=== PATIENT | male | born 1960 | race Caucasian/White ===

== ENCOUNTER → 2020-09-23 | Outpatient (CLI) | payer SELFPAY | LOC: M LABSMTC 12:03 | PROVIDERS: ATTEND Pediatrics | DX: Z20.822 Contact with and (suspected) exposure to COVID-19 (principal) ==

== ENCOUNTER 2021-11-16 14:07 | Emergency (ER) | payer BC, OTHER ==
[~2021-11-16] VITALS: Ht 180.3 cm; Wt 113.6 kg
[2021-11-16] MEDS ORDERED: KETOROLAC 60MG 2ML VIAL IM ONE (16:30)
[2021-11-16] MEDS ORDERED: LIDOCAINE 5% (LIDODERM) PATCH TD ONE (16:30)
[2021-11-16] MEDS ORDERED: diazePAM 10 MG TAB PO ONE (16:30)
[2021-11-16] MEDS ORDERED: ASPE4PAD TOP (17:56)
[2021-11-16] MEDS ORDERED: NAPR-837 PO (17:56)
[2021-11-16] MEDS ORDERED: METH-1165 PO (17:56)
[2021-11-16 18:07] VITALS: BP 130/76
[2021-11-16] MEDS ORDERED: **NOTE PATIENT COMMENT** MISC XX SCH (21:00)
== END 2021-11-16 18:22 | disposition home or self-care (01) ==
LOC: M ED 14:07
DX: M54.50 Low back pain, unspecified (principal); M54.6 Pain in thoracic spine; M51.36 Other intervertebral disc degeneration, lumbar region
CPT/HCPCS: 72072; 72110; 96372; 99283; J1885

== ENCOUNTER → 2022-05-06 | Outpatient (REF) | payer OTHER ==
[~2022-05-06] MED LIST: ASPE4PAD TOP; METH-1165 PO; NAPR-837 PO
[2022-05-06 17:17] LABS: ALBUMIN 3.6 GM/DL (3.2-5.2); ALT/SGPT 56 U/L (12-78); BILIRUBIN,TOTAL 0.5 MG/DL (0.2-1.0); BLOOD UREA NITROGEN 12 MG/DL (7-18); C REACTIVE PROTEIN QUANTITATIV 0.62 MG/DL (0.00-0.30); CALCIUM LEVEL 9.4 MG/DL (8.5-10.1); CARBON DIOXIDE LEVEL 29 MEQ/L (21-32); CHLORIDE LEVEL 105 MEQ/L (98-107); CREATININE FOR GFR 0.99 MG/DL (0.70-1.30); GLOMERULAR FILTRATION RATE > 60.0 (>56); GLUCOSE, FASTING 101 MG/DL (70-100); POTASSIUM SERUM 4.5 MEQ/L (3.5-5.1); SODIUM LEVEL 136 MEQ/L (136-145); TOTAL PROTEIN 7.3 GM/DL (6.4-8.2)
[2022-05-06 17:30] LABS: BASO # 0.1 10^3/uL (0.0-0.2); BASO % 0.8 % (0.0-1.0); EOS # 0.2 10^3/uL (0.0-0.5); EOS % 2.9 % (0.0-3.0); HEMATOCRIT 44.9 % (42.0-52.0); HEMOGLOBIN 14.9 g/dl (13.5-17.5); LYMPH # 1.4 10^3/uL (1.5-5.0); LYMPH % 17.9 % (24.0-44.0); MEAN CORPUSCULAR HEMOGLOBIN 31.9 pg (27.0-33.0); MEAN CORPUSCULAR HGB CONC 33.2 g/dl (32.0-36.5); MEAN CORPUSCULAR VOLUME 96.1 fl (80.0-96.0); MONO # 0.7 10^3/uL (0.0-0.8); MONO % 9.8 % (2.0-8.0); NEUTROPHILS # 5.2 10^3/uL (1.5-8.5); NEUTROPHILS % 68.1 % (36.0-66.0); PLATELET COUNT, AUTOMATED 313 10^3/uL (150-450); RED BLOOD COUNT 4.67 10^6/uL (4.30-6.10); WHITE BLOOD COUNT 7.6 10^3/uL (4.0-10.0)
[2022-05-06 19:36] LABS: ERYTHROCYTE SEDIMENTATION RATE 10 mm/hr (0-20)
== END ==
LOC: M SFHCRHEU 13:57
PROVIDERS: ATTEND Internal Medicine Rheumatology
DX: R76.8 Other specified abnormal immunological findings in serum (principal); M48.10 Ankylosing hyperostosis [Forestier], site unspecified; M54.50 Low back pain, unspecified

== ENCOUNTER → 2022-05-06 | Outpatient (CLI) | payer OTHER | LOC: M WUC 14:31 | PROVIDERS: ATTEND Internal Medicine Rheumatology | DX: R76.8 Other specified abnormal immunological findings in serum (principal); M48.10 Ankylosing hyperostosis [Forestier], site unspecified; M54.50 Low back pain, unspecified ==

== ENCOUNTER → 2022-11-17 | Outpatient (CLI) | payer MEDICAID, OTHER, SELFPAY | LOC: M SOG 14:07 | PROVIDERS: ATTEND Orthopaedic Surgery | DX: M54.50 Low back pain, unspecified (principal); M47.816 Spondylosis without myelopathy or radiculopathy, lumbar region ==

== ENCOUNTER → 2022-12-03 | Outpatient (CLI) | payer MEDICAID, SELFPAY | LOC: M PLARAD 10:37 | PROVIDERS: ATTEND Orthopaedic Surgery | DX: M51.26 Other intervertebral disc displacement, lumbar region (principal); M47.816 Spondylosis without myelopathy or radiculopathy, lumbar region; M43.16 Spondylolisthesis, lumbar region ==

== ENCOUNTER 2023-01-10 12:57 | Outpatient (RCR) | payer MEDICAID | END 2023-01-16 | LOC: M PT 12:57 | PROVIDERS: ATTEND Orthopaedic Surgery | DX: M54.50 Low back pain, unspecified (principal); M47.816 Spondylosis without myelopathy or radiculopathy, lumbar region ==

== ENCOUNTER → 2023-01-18 | Outpatient (CLI) | payer MEDICAID, OTHER ==
[2023-01-18 14:33] LABS: HEMOGLOBIN A1c 5.6 % (4.0-6.0)
[2023-01-18 14:46] LABS: ALKALINE PHOSPHATASE 80 U/L (46-116); ALT/SGPT 100 U/L (7.0-40); AST/SGOT 147 U/L (<34); BILIRUBIN,TOTAL 0.7 MG/DL (0.3-1.2); BLOOD UREA NITROGEN 11 MG/DL (9-23); CALCIUM LEVEL 9.1 MG/DL (8.3-10.6); CARBON DIOXIDE LEVEL 28 MMOL/L (20-31); CHLORIDE LEVEL 101 MMOL/L (98-107); CHOLESTEROL LEVEL 218 MG/DL (<200); CREATININE FOR GFR 0.95 MG/DL (0.70-1.30); GLOMERULAR FILTRATION RATE > 60.0 (>49); GLUCOSE, FASTING 95 MG/DL (74-106); HDL CHOLESTEROL 60.5 MG/DL (>40); LDL CHOLESTEROL 131.9 MG/DL (<100); NON-HDL-C 157.5 MG/DL; POTASSIUM SERUM 4.4 MMOL/L (3.5-5.1); SODIUM LEVEL 138 MMOL/L (136-145); TOTAL PROTEIN 7.4 G/DL (5.7-8.2); TRIGLYCERIDES LEVEL 128 MG/DL (<150)
[2023-01-18 14:48] LABS: THYROID STIMULATING HORMONE 5.082 uIU/ML (0.55-4.78)
== END ==
LOC: M PLALAB 09:53
PROVIDERS: ATTEND Family Medicine
DX: I10 Essential (primary) hypertension (principal); E66.9 Obesity, unspecified; Z78.9 Other specified health status; Z12.5 Encounter for screening for malignant neoplasm of prostate
CPT/HCPCS: 36415; 80053; 80061; 83036; 84443; G0103

== ENCOUNTER → 2023-03-25 | Outpatient (CLI) | payer OTHER ==
[2023-03-25 17:55] LABS: HEMATOCRIT 39.6 % (42.0-52.0); HEMOGLOBIN 12.8 g/dl (13.5-17.5); MEAN CORPUSCULAR HEMOGLOBIN 31.8 pg (27.0-33.0); MEAN CORPUSCULAR HGB CONC 32.3 g/dl (32.0-36.5); MEAN CORPUSCULAR VOLUME 98.5 fl (80.0-96.0); PLATELET COUNT, AUTOMATED 253 10^3/uL (150-450); RED BLOOD COUNT 4.02 10^6/uL (4.30-6.10); WHITE BLOOD COUNT 7.5 10^3/uL (4.0-10.0)
[2023-03-25 18:06] LABS: ALBUMIN 3.4 G/DL (3.2-5.2); ALKALINE PHOSPHATASE 58 U/L (46-116); ALT/SGPT 43 U/L (7.0-40); AST/SGOT 26 U/L (<34); BILIRUBIN,TOTAL 0.9 MG/DL (0.3-1.2); BLOOD UREA NITROGEN 14 MG/DL (9-23); CALCIUM LEVEL 9.9 MG/DL (8.3-10.6); CARBON DIOXIDE LEVEL 29 MMOL/L (20-31); CHLORIDE LEVEL 101 MMOL/L (98-107); CREATININE FOR GFR 0.94 MG/DL (0.70-1.30); GLOMERULAR FILTRATION RATE > 60.0 (>49); GLUCOSE, FASTING 99 MG/DL (74-106); POTASSIUM SERUM 4.9 MMOL/L (3.5-5.1); SODIUM LEVEL 135 MMOL/L (136-145); TOTAL PROTEIN 6.8 G/DL (5.7-8.2)
[2023-03-25 18:08] LABS: FREE T4 0.99 NG/DL (0.89-1.76); THYROID STIMULATING HORMONE 1.472 uIU/ML (0.55-4.78)
== END ==
LOC: M PLALAB 13:47
PROVIDERS: ATTEND Family Medicine
DX: R79.89 Other specified abnormal findings of blood chemistry (principal); K70.0 Alcoholic fatty liver

== ENCOUNTER → 2023-12-07 | Outpatient (REF) | LOC: M PLAIMG 11:04 | PROVIDERS: ATTEND Internal Medicine | DX: M54.50 Low back pain, unspecified (principal); M47.816 Spondylosis without myelopathy or radiculopathy, lumbar region ==

== ENCOUNTER 2024-09-17 10:29 | Inpatient (IN) | payer OTHER ==
[2024-09-17] VITALS (9 sets, daily range): BP systolic 135–182; BP diastolic 87–116; TEMP 96.6–99; O2SAT 94–96
[~2024-09-17] VITALS: Ht 180.3 cm; Wt 104.6 kg
[2024-09-17 11:05] LABS: ABG BASE EXCESS -0.9 (-2.0-2.0); ABG HCO3 22.5 MMOL/L (22.0-26.0); ABG O2 SATURATION 97.3 % (95.0-99.0); ABG PARTIAL PRESSURE CO2 33.8 mmHg (35.0-45.0); ABG PARTIAL PRESSURE O2 95.9 mmHg (75.0-100.0); ABG STANDARD HCO3 23.7 MMOL/L. (22.0-26.0); ABG TOTAL CO2 23.6 MMOL/L (23.0-31.0); ABG pH (ARTERIAL) 7.442 UNITS (7.350-7.450)
[2024-09-17 11:07] LABS: BASO # 0.1 10^3/uL (0.0-0.2); BASO % 0.6 % (0.0-1.0); EOS # 0.2 10^3/uL (0.0-0.5); EOS % 1.8 % (0.0-3.0); HEMATOCRIT 40.6 % (42.0-52.0); HEMOGLOBIN 13.3 g/dl (13.5-17.5); LYMPH # 1.3 10^3/uL (1.5-5.0); LYMPH % 15.1 % (24.0-44.0); MEAN CORPUSCULAR HEMOGLOBIN 33.7 pg (27.0-33.0); MEAN CORPUSCULAR HGB CONC 32.8 g/dl (32.0-36.5); MEAN CORPUSCULAR VOLUME 102.8 fl (80.0-96.0); MONO # 0.9 10^3/uL (0.0-0.8); MONO % 11.3 % (2.0-8.0); NEUTROPHILS # 5.9 10^3/uL (1.5-8.5); PLATELET COUNT, AUTOMATED 244 10^3/uL (150-450); RED BLOOD COUNT 3.95 10^6/uL (4.30-6.10); WHITE BLOOD COUNT 8.3 10^3/uL (4.0-10.0)
[2024-09-17] MEDS: methylPREDNISolone 125MG 2ML VIAL IV ONE (11:16)
[2024-09-17] MEDS: IPRATROPIUM 0.5MG/ALBUTEROL 2.5MG INH SOL UD 3ML (DUONEB) NEB ONE (11:19)
[2024-09-17] MEDS: ALBUTEROL SULFATE 2.5MG/0.5ML INH NEB SOLN INH ONE (11:19)
[2024-09-17 11:30] LABS: CK-MB VALUE MASS 2.5 NG/ML (<3.6)
[2024-09-17 11:32] LABS: ALBUMIN 3.7 G/DL (3.2-5.2); ALKALINE PHOSPHATASE 97 U/L (40-129); ALT/SGPT 55 U/L (7.0-40); AST/SGOT 67 U/L (<34); BILIRUBIN,DIRECT 0.6 MG/DL (<0.4); BILIRUBIN,TOTAL 1.3 MG/DL (0.3-1.2); BLOOD UREA NITROGEN 10 MG/DL (9-23); CALCIUM LEVEL 8.8 MG/DL (8.3-10.6); CARBON DIOXIDE LEVEL 27 MMOL/L (20-31); CHLORIDE LEVEL 101 MMOL/L (98-107); CPK CREATINE PHOSPHOKINASE 211 U/L (46-171); CREATININE FOR GFR 0.93 MG/DL (0.70-1.30); GLOMERULAR FILTRATION RATE > 60.0 (>49); GLUCOSE, FASTING 132 MG/DL (74-106); MB/CK RELATIVE INDEX 1.18 (< OR =4); POTASSIUM SERUM 4.5 MMOL/L (3.5-5.1); SODIUM LEVEL 136 MMOL/L (136-145)
[2024-09-17] MEDS ORDERED: ISOVUE-370 76% 100ML VIAL As Ordered ONE (11:38)
[2024-09-17 11:40] LABS: THYROID STIMULATING HORMONE 3.724 uIU/ML (0.55-4.78)
[2024-09-17] MEDS ORDERED: HOME MED LIST COMPLETE! XX SCH (12:35)
[2024-09-17 12:58] LABS: CK-MB VALUE MASS 1.4 NG/ML (<3.6)
[2024-09-17 12:59] LABS: MB/CK RELATIVE INDEX 0.71 (< OR =4)
[2024-09-17] MEDS: NS 500 ML IV ONE (13:09)
[2024-09-17] MEDS ORDERED: VENTAER INH (14:55)
[2024-09-17] MEDS ORDERED: LASI40TA9 PO (14:55)
[2024-09-17] MEDS ORDERED: PRED20TA PO (14:55)
[2024-09-17] MEDS: FUROSEMIDE 40MG/4ML VIAL IV ONE (15:10)
[2024-09-17] MEDS: METOPROLOL SUCC *XL* 25MG TAB (TopROL *XL*) PO ONE (16:08)
[2024-09-17] MEDS: APIXABAN 5 MG TAB (ELIQUIS) PO ONE (16:08)
[2024-09-17] MEDS: DIGOXIN INJ 0.5 MG/2 ML AMP IV ONE ×2 (16:09→23:53)
[2024-09-17 16:19] LABS: INR 1.18; PARTIAL THROMBOPLASTIN TIME 25.4 SECONDS (24.8-34.2); PROTHROMBIN TIME 15.3 SECONDS (12.5-14.5)
[2024-09-17 16:24] LABS: CK-MB VALUE MASS 2.3 NG/ML (<3.6)
[2024-09-17 16:26] LABS: MB/CK RELATIVE INDEX 1.1 (< OR =4)
[2024-09-17 16:28] LABS: THYROID STIMULATING HORMONE 1.741 uIU/ML (0.55-4.78); THYROXINE (T4) 7.2 UG/DL (4.5-10.9)
[2024-09-17 16:31] LABS: FREE THYROXINE INDEX 3.2 % (1.4-3.8); T UPTAKE 44.1 % (22.5-37.0)
[2024-09-17] MEDS ORDERED: LORazepam 2 MG TAB PO PRN (16:35)
[2024-09-17] MEDS: FUROSEMIDE 40MG/4ML VIAL IV SCH (17:29)
[2024-09-17] MEDS: METOPROLOL TART 25 MG TABLET PO SCH ×2 (17:29→23:57)
[2024-09-17] MEDS: metOLazone 5 MG TAB PO ONE (17:29)
[2024-09-17] MEDS: OXAZEPAM 15MG CAP PO ONE (17:29)
[2024-09-17] MEDS ORDERED: cloNIDine 0.1MG TABLET PO SCH (17:45)
[2024-09-17] MEDS: cloNIDine 0.1MG TABLET PO ONE (18:09)
[2024-09-17] MEDS: guaiFENesin DM LIQ 10ML UD PO ONE (18:09)
[2024-09-17] MEDS: BENZONATATE 100MG CAPSULE PO ONE (18:09)
[2024-09-17] MEDS: METOPROLOL 5 MG/5 ML VIAL IV SCH (18:09)
[2024-09-17] MEDS ORDERED: flumazeniL 0.5MG/5ML VIAL IV PRN (18:20)
[2024-09-17] MEDS ORDERED: hydrALAZINE 20MG/ML 1ML VIAL IV PRN (18:25)
[2024-09-17] MEDS ORDERED: FLUTICASONE PROP 0.05% NASAL SPRAY 16 GM (FLONASE) NARES SCH (18:25)
[2024-09-17] MEDS ORDERED: PILL CUTTER 1 EACH XX PRN (19:35)
[2024-09-17] MEDS: hydrALAZINE 20MG/ML 1ML VIAL IV ONE (20:57)
[2024-09-17] MEDS: FLUTICASONE PROP 0.05% NASAL SPRAY 16 GM (FLONASE) NARES SCH (20:58)
[2024-09-17] MEDS: TAMSULOSIN 0.4 MG CAP PO SCH (20:58)
[2024-09-17 23:08] LABS: CK-MB VALUE MASS 2.1 NG/ML (<3.6)
[2024-09-17 23:10] LABS: MB/CK RELATIVE INDEX 1.08 (< OR =4)
[2024-09-17] MEDS: OXAZEPAM 10MG CAP PO SCH (23:54)
[2024-09-18] VITALS (10 sets, daily range): BP systolic 105–135; BP diastolic 63–83; TEMP 97.1–98; O2SAT 91–97
[2024-09-18] MEDS ORDERED: ACETAMINOPHEN 325 MG TAB PO PRN (00:05)
[2024-09-18] MEDS ORDERED: BENZONATATE 100MG CAPSULE PO PRN (00:05)
[2024-09-18 04:22] LABS: CK-MB VALUE MASS 1.6 NG/ML (<3.6)
[2024-09-18 04:23] LABS: MB/CK RELATIVE INDEX 0.93 (< OR =4)
[2024-09-18] MEDS: DIGOXIN INJ 0.5 MG/2 ML AMP IV ONE ×3 (05:34→23:52)
[2024-09-18] MEDS: guaiFENesin SYRUP 200MG 10ML UDC PO PRN (05:34)
[2024-09-18] MEDS: APIXABAN 5 MG TAB (ELIQUIS) PO SCH (08:56)
[2024-09-18] MEDS: CETIRIZINE (ZyrTEC) 10 MG TAB PO SCH (08:57)
[2024-09-18] MEDS: MONTELUKAST 10 MG TAB PO SCH (08:57)
[2024-09-18] MEDS: OMEPRAZOLE 20MG CAP PO SCH (08:57)
[2024-09-18] MEDS: atenoloL 50 MG TAB PO ONE (09:09)
[2024-09-18] MEDS: metOLazone 5 MG TAB PO ONE (09:09)
[2024-09-18 09:12] LABS: HEMATOCRIT 37.2 % (42.0-52.0); HEMOGLOBIN 12.6 g/dl (13.5-17.5); LYMPH # 0.4 10^3/uL (1.5-5.0); LYMPH % 4.9 % (24.0-44.0); MEAN CORPUSCULAR HEMOGLOBIN 33.1 pg (27.0-33.0); MEAN CORPUSCULAR HGB CONC 33.9 g/dl (32.0-36.5); MEAN CORPUSCULAR VOLUME 97.6 fl (80.0-96.0); MONO # 0.3 10^3/uL (0.0-0.8); MONO % 3.9 % (2.0-8.0); NEUTROPHILS # 7.1 10^3/uL (1.5-8.5); NEUTROPHILS % 90.8 % (36.0-66.0); PLATELET COUNT, AUTOMATED 232 10^3/uL (150-450); RED BLOOD COUNT 3.81 10^6/uL (4.30-6.10); WHITE BLOOD COUNT 7.8 10^3/uL (4.0-10.0)
[2024-09-18 09:41] LABS: ALBUMIN 3.3 G/DL (3.2-5.2); BLOOD UREA NITROGEN 18 MG/DL (9-23); CALCIUM LEVEL 9.3 MG/DL (8.3-10.6); CARBON DIOXIDE LEVEL 32 MMOL/L (20-31); CHLORIDE LEVEL 99 MMOL/L (98-107); CREATININE FOR GFR 0.87 MG/DL (0.70-1.30); GLOMERULAR FILTRATION RATE > 60.0 (>49); GLUCOSE, FASTING 161 MG/DL (74-106); MAGNESIUM LEVEL 1.6 MG/DL (1.8-2.4); POTASSIUM SERUM 3.9 MMOL/L (3.5-5.1); SODIUM LEVEL 138 MMOL/L (136-145)
[2024-09-18] MEDS: MAG SULF 1GM/100ML (MAG RUN) 1 GM in IV 1 EA IV SCH (10:56)
[2024-09-18] MEDS: FUROSEMIDE 40MG/4ML VIAL IV ONE (10:56)
[2024-09-18] MEDS: POTASSIUM CHLORIDE 10MEQ SR TABLET PO ONE (10:57)
[2024-09-18] MEDS: MIDODRINE 5 MG TAB PO ONE ×2 (14:14→17:42)
[2024-09-18 14:30] LABS: BLOOD UREA NITROGEN 19 MG/DL (9-23); CALCIUM LEVEL 9.3 MG/DL (8.3-10.6); CARBON DIOXIDE LEVEL 32 MMOL/L (20-31); CHLORIDE LEVEL 98 MMOL/L (98-107); GLOMERULAR FILTRATION RATE > 60.0 (>49); GLUCOSE, FASTING 124 MG/DL (74-106); MAGNESIUM LEVEL 2.1 MG/DL (1.8-2.4); POTASSIUM SERUM 4.2 MMOL/L (3.5-5.1); SODIUM LEVEL 138 MMOL/L (136-145)
[2024-09-18] MEDS: FUROSEMIDE 40MG/4ML VIAL IV SCH (17:05)
[2024-09-19] VITALS (10 sets, daily range): BP systolic 117–138; BP diastolic 69–103; TEMP 96.8–98.4; O2SAT 91–96
[2024-09-19 08:47] LABS: HEMATOCRIT 40.2 % (42.0-52.0); HEMOGLOBIN 13.5 g/dl (13.5-17.5); MEAN CORPUSCULAR HEMOGLOBIN 33.8 pg (27.0-33.0); MEAN CORPUSCULAR HGB CONC 33.6 g/dl (32.0-36.5); MEAN CORPUSCULAR VOLUME 100.5 fl (80.0-96.0); PLATELET COUNT, AUTOMATED 260 10^3/uL (150-450); WHITE BLOOD COUNT 11.3 10^3/uL (4.0-10.0)
[2024-09-19] MEDS ORDERED: atenoloL 50 MG TAB PO SCH (09:00)
[2024-09-19] MEDS ORDERED: METOPROLOL SUCC (TopROL XL) 100MG *XL* TAB PO SCH (09:00)
[2024-09-19 09:01] LABS: HEMOGLOBIN A1c 5.4 % (4.0-6.0)
[2024-09-19 09:19] LABS: BLOOD UREA NITROGEN 28 MG/DL (9-23); CALCIUM LEVEL 9.2 MG/DL (8.3-10.6); CARBON DIOXIDE LEVEL 33 MMOL/L (20-31); CHLORIDE LEVEL 101 MMOL/L (98-107); CHOLESTEROL LEVEL 185 MG/DL (<200); CHOLESTEROL RISK RATIO 3.23 (<5); CREATININE FOR GFR 0.95 MG/DL (0.70-1.30); DIGOXIN LEVEL 0.7 NG/ML (0.8-2.0); GLOMERULAR FILTRATION RATE > 60.0 (>49); GLUCOSE, FASTING 98 MG/DL (74-106); HDL CHOLESTEROL 57.1 MG/DL (>40); LDL CHOLESTEROL 112.1 MG/DL (<100); NON-HDL-C 127.9 MG/DL; POTASSIUM SERUM 4.2 MMOL/L (3.5-5.1); SODIUM LEVEL 141 MMOL/L (136-145); TRIGLYCERIDES LEVEL 79 MG/DL (<150)
[2024-09-19] MEDS: METOPROLOL SUCC (TopROL XL) 100MG *XL* TAB PO ONE (09:20)
[2024-09-19] MEDS: ENTRESTO 24-26MG TABLET (SACUBITRIL/VALSARTAN) PO SCH (09:21)
[2024-09-19] MEDS: SPIRONOLACTONE 25 MG TAB PO SCH (09:21)
[2024-09-19] MEDS: DIGOXIN 0.25 MG TAB PO SCH (09:21)
[2024-09-19] MEDS: MIDODRINE 5 MG TAB PO ONE (09:30)
[2024-09-19] MEDS: metOLazone 5 MG TAB PO ONE (12:37)
[2024-09-19] MEDS: OXYMETAZOLINE 0.05% NASAL SPRAY (AFRIN) SCH (13:51)
[2024-09-19] MEDS: FUROSEMIDE 40MG/4ML VIAL IV ONE ×2 (13:51→18:13)
[2024-09-20] VITALS (9 sets, daily range): BP systolic 88–161; BP diastolic 55–98; TEMP 97–97.7; O2SAT 93–96
[2024-09-20 08:49] LABS: IONIZED CALCIUM 4.2 MG/DL (4.5-5.3)
[2024-09-20 08:54] LABS: BASO # 0.1 10^3/uL (0.0-0.2); BASO % 0.7 % (0.0-1.0); EOS # 0.1 10^3/uL (0.0-0.5); EOS % 0.9 % (0.0-3.0); HEMATOCRIT 46.4 % (42.0-52.0); LYMPH # 1.6 10^3/uL (1.5-5.0); LYMPH % 18.8 % (24.0-44.0); MEAN CORPUSCULAR HEMOGLOBIN 33.5 pg (27.0-33.0); MEAN CORPUSCULAR HGB CONC 33.8 g/dl (32.0-36.5); MEAN CORPUSCULAR VOLUME 98.9 fl (80.0-96.0); MONO % 11.2 % (2.0-8.0); NEUTROPHILS % 68.1 % (36.0-66.0); PLATELET COUNT, AUTOMATED 287 10^3/uL (150-450); RED BLOOD COUNT 4.69 10^6/uL (4.30-6.10); WHITE BLOOD COUNT 8.7 10^3/uL (4.0-10.0)
[2024-09-20 09:01] LABS: HEMOGLOBIN 15.7 g/dl (13.5-17.5)
[2024-09-20] MEDS: metOLazone 5 MG TAB PO ONE (09:10)
[2024-09-20] MEDS: METOPROLOL SUCC (TopROL XL) 100MG *XL* TAB PO SCH (09:11)
[2024-09-20 09:19] LABS: BLOOD UREA NITROGEN 30 MG/DL (9-23); CALCIUM LEVEL 9.9 MG/DL (8.3-10.6); CARBON DIOXIDE LEVEL 35 MMOL/L (20-31); CHLORIDE LEVEL 95 MMOL/L (98-107); CREATININE FOR GFR 0.91 MG/DL (0.70-1.30); GLOMERULAR FILTRATION RATE > 60.0 (>49); GLUCOSE, FASTING 101 MG/DL (74-106); MAGNESIUM LEVEL 1.7 MG/DL (1.8-2.4); POTASSIUM SERUM 3.7 MMOL/L (3.5-5.1); SODIUM LEVEL 138 MMOL/L (136-145)
[2024-09-20] MEDS: FUROSEMIDE 40MG/4ML VIAL IV ONE (10:08)
[2024-09-20] MEDS ORDERED: METOPROLOL SUCC (TopROL XL) 50MG **XL** TAB PO ONE (11:45)
[2024-09-20] MEDS: MAG SULF 1GM/100ML (MAG RUN) 1 GM in IV 1 EA IV SCH (12:44)
[2024-09-20] MEDS: METOPROLOL SUCC *XL* 25MG TAB (TopROL *XL*) PO ONE (12:45)
[2024-09-20] MEDS: MIDODRINE 5 MG TAB PO SCH (14:02)
[2024-09-20] MEDS: NS 500 ML IV ONE (14:02)
[2024-09-20] MEDS ORDERED: FUROSEMIDE 40MG/4ML VIAL IV SCH (15:00)
[2024-09-21 04:00] VITALS: BP 115/70; TEMP 96.6; O2SAT 97
[2024-09-21 06:08] LABS: BASO % 0.4 % (0.0-1.0); EOS # 0.1 10^3/uL (0.0-0.5); EOS % 1.2 % (0.0-3.0); HEMATOCRIT 47.4 % (42.0-52.0); LYMPH # 1.5 10^3/uL (1.5-5.0); LYMPH % 17.1 % (24.0-44.0); MEAN CORPUSCULAR HEMOGLOBIN 33.2 pg (27.0-33.0); MEAN CORPUSCULAR HGB CONC 33.8 g/dl (32.0-36.5); MEAN CORPUSCULAR VOLUME 98.3 fl (80.0-96.0); MONO % 11.6 % (2.0-8.0); NEUTROPHILS # 6.2 10^3/uL (1.5-8.5); NEUTROPHILS % 69.5 % (36.0-66.0); PLATELET COUNT, AUTOMATED 269 10^3/uL (150-450); RED BLOOD COUNT 4.82 10^6/uL (4.30-6.10); WHITE BLOOD COUNT 8.9 10^3/uL (4.0-10.0)
[2024-09-21 06:33] LABS: BLOOD UREA NITROGEN 39 MG/DL (9-23); CALCIUM LEVEL 9.4 MG/DL (8.3-10.6); CARBON DIOXIDE LEVEL 34 MMOL/L (20-31); CHLORIDE LEVEL 97 MMOL/L (98-107); CREATININE FOR GFR 1.02 MG/DL (0.70-1.30); GLOMERULAR FILTRATION RATE > 60.0 (>49); GLUCOSE, FASTING 117 MG/DL (74-106); POTASSIUM SERUM 3.8 MMOL/L (3.5-5.1); SODIUM LEVEL 138 MMOL/L (136-145)
[2024-09-21] MEDS: FUROSEMIDE 40 MG TAB PO SCH (08:47)
[2024-09-21 08:51] VITALS: BP 106/63
[2024-09-21] MEDS: METOPROLOL SUCC *XL* 25MG TAB (TopROL *XL*) PO SCH (08:51)
[2024-09-21] MEDS: METOPROLOL SUCC (TopROL XL) 100MG *XL* TAB PO SCH (08:52)
[2024-09-21] MEDS ORDERED: METOPROLOL SUCC (TopROL XL) 50MG **XL** TAB PO SCH (09:00)
[2024-09-21] MEDS ORDERED: DIGO0.253 PO (10:47)
[2024-09-21] MEDS ORDERED: FURO40TA2 PO (10:47)
[2024-09-21] MEDS ORDERED: FLOM0.4C39 PO (10:47)
[2024-09-21] MEDS ORDERED: ELIQ5TAB PO (10:47)
[2024-09-21] MEDS ORDERED: METO1TAB7 PO (10:47)
[2024-09-21] MEDS ORDERED: ENTR1TAB PO (10:47)
[2024-09-21] MEDS ORDERED: ALDA25TA2 PO (10:48)
[2024-09-21] MEDS ORDERED: METO25TA PO (10:49)
[2024-09-21] MEDS ORDERED: OXAZ30CA2 PO (10:55)
[2024-09-21] MEDS ORDERED: OXAZ15CA4 PO ×2 (10:55→10:57)
[2024-09-21] MEDS ORDERED: METO1TAB32 PO (11:01)
[2024-09-21] MEDS ORDERED: FURO20TA2 PO (11:01)
[2024-09-21] MEDS ORDERED: POTA-149 PO (11:02)
[2024-09-21] MEDS ORDERED: MAGN400T2 PO (11:04)
[2024-09-21 11:45] VITALS: BP 110/65; TEMP 97.2; O2SAT 98
[2024-09-21] MEDS ORDERED: FARX1TAB3 PO (16:14)
== END 2024-09-21 13:27 | disposition home health service (06) | DRG 194 ==
LOC: M ED 10:29 → M ED INP 15:25 → M PCU 16:31 → M MSPAV 09-20 21:59
PROVIDERS: ADMIT General Practice; ATTEND Student in an Organized Health Care Education/Training Program
PROC: B246ZZZ Ultrasonography of Right and Left Heart (ICD-10-PCS; principal; 2024-09-18)
DX: I11.0 Hypertensive heart disease with heart failure (principal); I48.92 Unspecified atrial flutter; K76.0 Fatty (change of) liver, not elsewhere classified; E66.813 Obesity, class 3; G47.30 Sleep apnea, unspecified; F32.A Depression, unspecified; K21.9 Gastro-esophageal reflux disease without esophagitis; M54.9 Dorsalgia, unspecified; G89.29 Other chronic pain; B34.8 Other viral infections of unspecified site; F10.239 Alcohol dependence with withdrawal, unspecified; I16.0 Hypertensive urgency; I48.91 Unspecified atrial fibrillation; Z68.37 Body mass index [BMI] 37.0-37.9, adult; R33.9 Retention of urine, unspecified; Z87.891 Personal history of nicotine dependence; I50.21 Acute systolic (congestive) heart failure

== ENCOUNTER → 2024-10-30 | Outpatient (REF) | payer MEDICARE, OTHER, MEDICAID ==
[~2024-10-30] MED LIST changes: +ALDA25TA2 PO; +DIGO0.253 PO; +ELIQ5TAB PO; +ENTR1TAB PO; +FARX1TAB3 PO; +FLOM0.4C39 PO; +FURO20TA2 PO; +FURO40TA2 PO; +LASI40TA9 PO; +MAGN400T2 PO; +METO1TAB32 PO; +METO1TAB7 PO; +METO25TA PO; +OXAZ15CA4 PO; +OXAZ30CA2 PO; +POTA-149 PO; +PRED20TA PO; +VENTAER INH
[2024-10-30 15:08] LABS: ALBUMIN 3.4 G/DL (3.2-5.2); ALKALINE PHOSPHATASE 78 U/L (40-129); ALT/SGPT 30 U/L (7.0-40); AST/SGOT 30 U/L (<34); BILIRUBIN,TOTAL 0.5 MG/DL (0.3-1.2); BLOOD UREA NITROGEN 10 MG/DL (9-23); CARBON DIOXIDE LEVEL 27 MMOL/L (20-31); CHLORIDE LEVEL 103 MMOL/L (98-107); GLOMERULAR FILTRATION RATE > 60.0 (>49); GLUCOSE, FASTING 94 MG/DL (74-106); MAGNESIUM LEVEL 1.8 MG/DL (1.8-2.4); POTASSIUM SERUM 4.3 MMOL/L (3.5-5.1); SODIUM LEVEL 141 MMOL/L (136-145)
== END ==
LOC: M LAB REF 13:28
PROVIDERS: ATTEND Family Medicine
DX: F10.90 Alcohol use, unspecified, uncomplicated (principal); I50.22 Chronic systolic (congestive) heart failure; J90 Pleural effusion, not elsewhere classified

== ENCOUNTER → 2024-11-02 | Outpatient (CLI) | payer MEDICARE, OTHER | LOC: M PLALAB 11:36 | PROVIDERS: ATTEND Family Medicine | DX: F10.90 Alcohol use, unspecified, uncomplicated (principal) ==

== ENCOUNTER 2024-11-14 14:11 | Inpatient (IN) | payer MEDICARE, MEDICAID ==
[~2024-11-14] VITALS: Ht 180.3 cm; Wt 112.8 kg
[2024-11-14 14:58] LABS: BASO % 0.3 % (0.0-1.0); EOS # 0.1 10^3/uL (0.0-0.5); EOS % 1.5 % (0.0-3.0); HEMATOCRIT 38.1 % (42.0-52.0); HEMOGLOBIN 12.6 g/dl (13.5-17.5); LYMPH # 1.1 10^3/uL (1.5-5.0); LYMPH % 11.4 % (24.0-44.0); MEAN CORPUSCULAR HEMOGLOBIN 32.6 pg (27.0-33.0); MEAN CORPUSCULAR HGB CONC 33.1 g/dl (32.0-36.5); MEAN CORPUSCULAR VOLUME 98.7 fl (80.0-96.0); MONO % 10.1 % (2.0-8.0); NEUTROPHILS # 7.3 10^3/uL (1.5-8.5); NEUTROPHILS % 76.2 % (36.0-66.0); PLATELET COUNT, AUTOMATED 199 10^3/uL (150-450); RED BLOOD COUNT 3.86 10^6/uL (4.30-6.10); WHITE BLOOD COUNT 9.6 10^3/uL (4.0-10.0)
[2024-11-14 15:28] LABS: ALBUMIN 3.5 G/DL (3.2-5.2); ALKALINE PHOSPHATASE 61 U/L (40-129); ALT/SGPT 28 U/L (7.0-40); AST/SGOT 32 U/L (<34); BILIRUBIN,DIRECT 0.4 MG/DL (<0.4); BLOOD UREA NITROGEN 9 MG/DL (9-23); CALCIUM LEVEL 8.4 MG/DL (8.3-10.6); CARBON DIOXIDE LEVEL 27 MMOL/L (20-31); CHLORIDE LEVEL 103 MMOL/L (98-107); CK-MB VALUE MASS < 1.0 NG/ML (<3.6); CREATININE FOR GFR 0.84 MG/DL (0.70-1.30); GLOMERULAR FILTRATION RATE > 60.0 (>49); GLUCOSE, FASTING 103 MG/DL (74-106); POTASSIUM SERUM 4.5 MMOL/L (3.5-5.1); SODIUM LEVEL 138 MMOL/L (136-145); TOTAL PROTEIN 6.8 G/DL (5.7-8.2)
[2024-11-14] MEDS: dexAMETHasone 20MG/5ML VIAL IV ONE (15:28)
[2024-11-14 15:29] LABS: CPK CREATINE PHOSPHOKINASE 143 U/L (46-171); MB/CK RELATIVE INDEX 0.69 (< OR =4)
[2024-11-14] MEDS: IPRATROPIUM 0.5MG/ALBUTEROL 2.5MG INH SOL UD 3ML (DUONEB) NEB PRN (15:54)
[2024-11-14] MEDS: FUROSEMIDE 40MG/4ML VIAL IV ONE (15:57)
[2024-11-14] MEDS: METOPROLOL TART 50 MG TAB PO ONE (17:55)
[2024-11-14] MEDS: METOPROLOL 5 MG/5 ML VIAL IV SCH (17:55)
[2024-11-14] MEDS: APIXABAN 5 MG TAB (ELIQUIS) PO ONE (19:10)
[2024-11-14] MEDS ORDERED: ELIQ5TAB PO (20:24)
[2024-11-14] MEDS ORDERED: FLOM0.4C39 PO (20:24)
[2024-11-14] MEDS ORDERED: DIGO0.253 PO (20:31)
[2024-11-14] MEDS ORDERED: FARX1TAB3 PO (20:31)
[2024-11-14] MEDS ORDERED: POTA-136 PO (20:31)
[2024-11-14] MEDS ORDERED: MAGN400T35 PO (20:31)
[2024-11-14] MEDS ORDERED: FURO20TA2 PO (20:31)
[2024-11-14] MEDS ORDERED: ENTR1TAB PO (20:31)
[2024-11-14] MEDS ORDERED: METO1TAB33 PO (20:31)
[2024-11-14] MEDS ORDERED: FAMO1TAB11 PO (20:33)
[2024-11-14] MEDS ORDERED: VENTAER INH (20:33)
[2024-11-14] MEDS ORDERED: LIPI20TA PO (20:33)
[2024-11-14] MEDS ORDERED: HOME MED LIST COMPLETE! XX SCH (20:35)
[2024-11-14] MEDS ORDERED: IPRATROPIUM 0.5MG/ALBUTEROL 2.5MG INH SOL UD 3ML (DUONEB) NEB PRN (21:45)
[2024-11-14] MEDS: ATORVASTATIN 20 MG TAB PO SCH (23:45)
[2024-11-14] MEDS: ENTRESTO 24-26MG TABLET (SACUBITRIL/VALSARTAN) PO SCH (23:46)
[2024-11-14] MEDS: DOXYCYCLINE HYCLATE 100MG TABLET PO SCH (23:46)
[2024-11-14] MEDS: TAMSULOSIN 0.4 MG CAP PO SCH (23:46)
[2024-11-15] VITALS (11 sets, daily range): BP systolic 140–172; BP diastolic 77–101; TEMP 96.9–99.1; O2SAT 93–97
[2024-11-15] MEDS ORDERED: LORazepam 2 MG TAB PO PRN (00:30)
[2024-11-15] MEDS ORDERED: LABETALOL 100MG/20ML VIAL IV PRN (00:50)
[2024-11-15] MEDS: IPRATROPIUM 0.5MG/ALBUTEROL 2.5MG INH SOL UD 3ML (DUONEB) NEB SCH (02:57)
[2024-11-15] MEDS: methylPREDNISolone 40MG 1ML VIAL IV SCH (05:24)
[2024-11-15 06:24] LABS: BASO % 0.2 % (0.0-1.0); HEMOGLOBIN 12.8 g/dl (13.5-17.5); LYMPH # 0.6 10^3/uL (1.5-5.0); LYMPH % 8.7 % (24.0-44.0); MEAN CORPUSCULAR HGB CONC 33.7 g/dl (32.0-36.5); MEAN CORPUSCULAR VOLUME 97.9 fl (80.0-96.0); MONO # 0.1 10^3/uL (0.0-0.8); MONO % 2.1 % (2.0-8.0); NEUTROPHILS # 5.9 10^3/uL (1.5-8.5); NEUTROPHILS % 88.5 % (36.0-66.0); PLATELET COUNT, AUTOMATED 209 10^3/uL (150-450); RED BLOOD COUNT 3.88 10^6/uL (4.30-6.10); WHITE BLOOD COUNT 6.6 10^3/uL (4.0-10.0)
[2024-11-15 06:56] LABS: ALBUMIN 3.1 G/DL (3.2-5.2); ALKALINE PHOSPHATASE 50 U/L (40-129); ALT/SGPT 22 U/L (7.0-40); AST/SGOT 20 U/L (<34); BILIRUBIN,TOTAL 1.1 MG/DL (0.3-1.2); BLOOD UREA NITROGEN 13 MG/DL (9-23); CALCIUM LEVEL 8.7 MG/DL (8.3-10.6); CARBON DIOXIDE LEVEL 26 MMOL/L (20-31); CHLORIDE LEVEL 103 MMOL/L (98-107); CREATININE FOR GFR 0.86 MG/DL (0.70-1.30); GLOMERULAR FILTRATION RATE > 60.0 (>49); GLUCOSE, FASTING 156 MG/DL (74-106); POTASSIUM SERUM 4.3 MMOL/L (3.5-5.1); SODIUM LEVEL 140 MMOL/L (136-145); TOTAL PROTEIN 6.5 G/DL (5.7-8.2)
[2024-11-15] MEDS: SYMBICORT 160/4.5MCG INHALER 6GM INH SCH (07:42)
[2024-11-15] MEDS: FUROSEMIDE 40MG/4ML VIAL IV SCH (08:18)
[2024-11-15] MEDS: PANTOPRAZOLE 40MG VIAL IV SCH (08:18)
[2024-11-15] MEDS: THIAMINE 100 MG TAB PO SCH (08:19)
[2024-11-15] MEDS: predniSONE 20 MG TAB PO SCH (08:19)
[2024-11-15] MEDS: DIGOXIN 0.25 MG TAB PO SCH (08:20)
[2024-11-15] MEDS: METOPROLOL SUCC (TopROL XL) 100MG *XL* TAB PO SCH (08:20)
[2024-11-15] MEDS: APIXABAN 5 MG TAB (ELIQUIS) PO SCH (08:20)
[2024-11-15] MEDS: MULTIVITAMINS/MINERALS THERAP 1 TAB PO SCH (08:20)
[2024-11-15] MEDS: FOLIC ACID 1MG TAB PO SCH (08:20)
[2024-11-15] MEDS: SPIRONOLACTONE 25 MG TAB PO SCH (11:07)
[2024-11-15] MEDS: DAPAGLIFLOZIN PROPANEDIOL 10MG TABLET (FARXIGA) PO SCH (11:07)
[2024-11-15] MEDS: METOPROLOL SUCC *XL* 25MG TAB (TopROL *XL*) PO SCH (21:01)
[2024-11-16] VITALS (18 sets, daily range): BP systolic 162–168; BP diastolic 87–90; TEMP 98–98.2; O2SAT 91–95
[2024-11-16 06:08] LABS: BASO % 0.1 % (0.0-1.0); HEMATOCRIT 40.5 % (42.0-52.0); HEMOGLOBIN 13.3 g/dl (13.5-17.5); LYMPH # 0.9 10^3/uL (1.5-5.0); LYMPH % 7.6 % (24.0-44.0); MEAN CORPUSCULAR HEMOGLOBIN 32.4 pg (27.0-33.0); MEAN CORPUSCULAR HGB CONC 32.8 g/dl (32.0-36.5); MEAN CORPUSCULAR VOLUME 98.5 fl (80.0-96.0); MONO # 1.2 10^3/uL (0.0-0.8); MONO % 9.9 % (2.0-8.0); NEUTROPHILS # 10.1 10^3/uL (1.5-8.5); NEUTROPHILS % 81.9 % (36.0-66.0); PLATELET COUNT, AUTOMATED 237 10^3/uL (150-450); RED BLOOD COUNT 4.11 10^6/uL (4.30-6.10); WHITE BLOOD COUNT 12.3 10^3/uL (4.0-10.0)
[2024-11-16 06:38] LABS: ALBUMIN 3.3 G/DL (3.2-5.2); ALKALINE PHOSPHATASE 49 U/L (40-129); ALT/SGPT 20 U/L (7.0-40); AST/SGOT 14 U/L (<34); BILIRUBIN,TOTAL 0.6 MG/DL (0.3-1.2); BLOOD UREA NITROGEN 27 MG/DL (9-23); CALCIUM LEVEL 8.9 MG/DL (8.3-10.6); CARBON DIOXIDE LEVEL 28 MMOL/L (20-31); CHLORIDE LEVEL 105 MMOL/L (98-107); CREATININE FOR GFR 0.99 MG/DL (0.70-1.30); GLOMERULAR FILTRATION RATE > 60.0 (>49); GLUCOSE, FASTING 120 MG/DL (74-106); SODIUM LEVEL 143 MMOL/L (136-145); TOTAL PROTEIN 6.7 G/DL (5.7-8.2)
[2024-11-16 07:03] LABS: MAGNESIUM LEVEL 1.9 MG/DL (1.8-2.4)
[2024-11-16] MEDS ORDERED: SPIR-10 PO (11:54)
[2024-11-16] MEDS ORDERED: METO1TAB33 PO (11:54)
[2024-11-16] MEDS ORDERED: FURO40TA2 PO (11:54)
== END 2024-11-16 15:12 | disposition home or self-care (01) | DRG 291 ==
LOC: M ED 14:11 → M ED INP 20:33 → M PCU 11-15 02:29
PROVIDERS: ADMIT Family Medicine; ATTEND Family Medicine
DX: I11.0 Hypertensive heart disease with heart failure (principal); I50.23 Acute on chronic systolic (congestive) heart failure; I16.9 Hypertensive crisis, unspecified; J44.1 Chronic obstructive pulmonary disease with (acute) exacerbation; I48.92 Unspecified atrial flutter; I48.91 Unspecified atrial fibrillation; F10.90 Alcohol use, unspecified, uncomplicated; E78.5 Hyperlipidemia, unspecified; N40.0 Benign prostatic hyperplasia without lower urinary tract symptoms; Z79.01 Long term (current) use of anticoagulants; Z79.899 Other long term (current) drug therapy; Z95.0 Presence of cardiac pacemaker; Z87.891 Personal history of nicotine dependence

== ENCOUNTER → 2024-11-22 | Outpatient (CLI) | payer MEDICARE, MEDICAID ==
[~2024-11-22] MED LIST changes: +ACET32TAB PO; +AZIT-12 PO; +BENZ-18 PO; +BREO1INH INH; +CEFD1CAP9 PO; +FAMO1TAB11 PO; +GUAI100S51 PO; +IPRA0.00 INH; +LIPI20TA PO; +LORA-622 PO; +MAGN400T35 PO; +METO1TAB33 PO; +PANT40TA29 PO; +POTA-136 PO; +SPIR-10 PO
[2024-11-22 15:20] LABS: HEMATOCRIT 46.3 % (42.0-52.0); HEMOGLOBIN 15.5 g/dl (13.5-17.5); MEAN CORPUSCULAR HEMOGLOBIN 32.5 pg (27.0-33.0); MEAN CORPUSCULAR HGB CONC 33.5 g/dl (32.0-36.5); MEAN CORPUSCULAR VOLUME 97.1 fl (80.0-96.0); PLATELET COUNT, AUTOMATED 279 10^3/uL (150-450); RED BLOOD COUNT 4.77 10^6/uL (4.30-6.10); WHITE BLOOD COUNT 7.8 10^3/uL (4.0-10.0)
[2024-11-22 15:33] LABS: ALBUMIN 3.5 G/DL (3.2-5.2); BILIRUBIN,TOTAL 0.9 MG/DL (0.3-1.2); CREATININE FOR GFR 1.31 MG/DL (0.70-1.30); MAGNESIUM LEVEL 2.1 MG/DL (1.8-2.4); TOTAL PROTEIN 7.1 G/DL (5.7-8.2)
== END ==
LOC: M PLALAB 13:55
PROVIDERS: ATTEND Physician Assistant Medical
DX: I50.22 Chronic systolic (congestive) heart failure (principal)

== ENCOUNTER → 2024-11-29 | Outpatient (CLI) | payer MEDICARE, MEDICAID | LOC: M PLALAB 14:03 → M PLAIMG 14:03 | DX: I50.9 Heart failure, unspecified (principal) ==

== ENCOUNTER 2024-11-30 03:13 | Inpatient (IN) | payer MEDICARE, MEDICAID ==
[~2024-11-30] VITALS: Ht 180.3 cm; Wt 112.5 kg
[~2024-11-30 03:13] MED LIST changes: -ACET32TAB PO; -AZIT-12 PO; -BENZ-18 PO; -BREO1INH INH; -CEFD1CAP9 PO; -GUAI100S51 PO; -IPRA0.00 INH; -LORA-622 PO; -PANT40TA29 PO
[2024-11-30 04:08] LABS: BASO # 0.1 10^3/uL (0.0-0.2); BASO % 0.6 % (0.0-1.0); EOS # 0.4 10^3/uL (0.0-0.5); EOS % 3.7 % (0.0-3.0); HEMATOCRIT 41.8 % (42.0-52.0); HEMOGLOBIN 14.3 g/dl (13.5-17.5); LYMPH # 1.7 10^3/uL (1.5-5.0); LYMPH % 17.5 % (24.0-44.0); MEAN CORPUSCULAR HEMOGLOBIN 33.1 pg (27.0-33.0); MEAN CORPUSCULAR HGB CONC 34.2 g/dl (32.0-36.5); MEAN CORPUSCULAR VOLUME 96.8 fl (80.0-96.0); MONO # 1.4 10^3/uL (0.0-0.8); MONO % 14.4 % (2.0-8.0); NEUTROPHILS # 6.1 10^3/uL (1.5-8.5); NEUTROPHILS % 63.5 % (36.0-66.0); PLATELET COUNT, AUTOMATED 273 10^3/uL (150-450); RED BLOOD COUNT 4.32 10^6/uL (4.30-6.10); WHITE BLOOD COUNT 9.6 10^3/uL (4.0-10.0)
[2024-11-30 04:20] LABS: CK-MB VALUE MASS 1.1 NG/ML (<3.6)
[2024-11-30 04:21] LABS: BLOOD UREA NITROGEN 25 MG/DL (9-23); CARBON DIOXIDE LEVEL 27 MMOL/L (20-31); CHLORIDE LEVEL 103 MMOL/L (98-107); CPK CREATINE PHOSPHOKINASE 106 U/L (46-171); CREATININE FOR GFR 1.24 MG/DL (0.70-1.30); GLOMERULAR FILTRATION RATE > 60.0 (>49); GLUCOSE, FASTING 106 MG/DL (74-106); MB/CK RELATIVE INDEX 1.03 (< OR =4); POTASSIUM SERUM 5.1 MMOL/L (3.5-5.1); SODIUM LEVEL 139 MMOL/L (136-145)
[2024-11-30] MEDS: FUROSEMIDE 100MG/10ML VIAL IV ONE (04:47)
[2024-11-30 05:00] LABS: VENOUS BASE EXCESS 3.7 (-2.0-2.0); VENOUS HCO3 26.4 MMOL/L (23.0-27.0); VENOUS O2 SATURATION 95.8 % (60.0-80.0); VENOUS PARTIAL PRESSURE CO2 34.2 mmHg (38.0-50.0); VENOUS PARTIAL PRESSURE O2 76.9 mmHg (30.0-50.0); VENOUS PH 7.506 UNITS (7.330-7.430); VENOUS STANDARD HCO3 27.7 MMOL/L; VENOUS TOTAL CO2 27.5 MMOL/L (24.0-28.0)
[2024-11-30 06:01] LABS: CK-MB VALUE MASS < 1.0 NG/ML (<3.6)
[2024-11-30 06:16] LABS: CPK CREATINE PHOSPHOKINASE 109 U/L (46-171); MB/CK RELATIVE INDEX 0.91 (< OR =4)
[2024-11-30] MEDS: IPRATROPIUM 0.5MG/ALBUTEROL 2.5MG INH SOL UD 3ML (DUONEB) NEB ONE (06:27)
[2024-11-30] MEDS: predniSONE 20 MG TAB PO ONE (06:39)
[2024-11-30] MEDS: IPRATROPIUM 0.5MG/ALBUTEROL 2.5MG INH SOL UD 3ML (DUONEB) NEB SCH (08:00)
[2024-11-30] MEDS ORDERED: LEVALBUTEROL 1.25MG 0.5ML CONCENTRATE NEB INH PRN (08:10)
[2024-11-30] MEDS ORDERED: FURO40TA2 PO (08:44)
[2024-11-30] MEDS ORDERED: SPIR-10 PO (08:44)
[2024-11-30] MEDS ORDERED: HOME MED LIST COMPLETE! XX SCH (08:45)
[2024-11-30] MEDS ORDERED: ENOXAPARIN 40MG/0.4ML SYRINGE (J1650 PER 10MG) SC SCH (09:00)
[2024-11-30] MEDS: PANTOPRAZOLE 40MG TAB (PROTONIX) PO SCH (10:08)
[2024-11-30] MEDS ORDERED: FAMOTIDINE 20 MG TAB PO PRN (10:45)
[2024-11-30] MEDS ORDERED: PILL CUTTER 1 EACH XX ONE (11:20)
[2024-11-30] MEDS: ENTRESTO 24-26MG TABLET (SACUBITRIL/VALSARTAN) PO SCH (11:26)
[2024-11-30] MEDS: APIXABAN 5 MG TAB (ELIQUIS) PO SCH (11:26)
[2024-11-30] MEDS: DAPAGLIFLOZIN PROPANEDIOL 10MG TABLET (FARXIGA) PO SCH (11:26)
[2024-11-30] MEDS: POTASSIUM CHLORIDE 10MEQ SR TABLET PO SCH (11:26)
[2024-11-30] MEDS: SPIRONOLACTONE 25 MG TAB PO SCH (11:26)
[2024-11-30] MEDS: DIGOXIN 0.25 MG TAB PO SCH (11:27)
[2024-11-30] MEDS: MAGNESIUM OXIDE 400MG TAB (MAG-OX) PO SCH (11:27)
[2024-11-30] MEDS: FUROSEMIDE 40 MG TAB PO SCH (11:27)
[2024-11-30] MEDS: METOPROLOL SUCC (TopROL XL) 100MG *XL* TAB PO SCH (11:28)
[2024-11-30 17:10] VITALS: BP 112/76; TEMP 98.8; O2SAT 94
[2024-11-30 20:00] VITALS: BP 117/66; TEMP 99.1; O2SAT 94
[2024-11-30] MEDS: TAMSULOSIN 0.4 MG CAP PO SCH (21:23)
[2024-11-30] MEDS: guaiFENesin SYRUP 200MG 10ML UDC PO PRN (21:23)
[2024-11-30] MEDS: ATORVASTATIN 20 MG TAB PO SCH (21:23)
[2024-11-30 23:43] VITALS: BP 109/56; TEMP 97.9; O2SAT 93
[2024-12-01 03:49] VITALS: BP 125/58; TEMP 97.4; O2SAT 90
[2024-12-01 06:12] LABS: HEMATOCRIT 39.8 % (42.0-52.0); HEMOGLOBIN 13.4 g/dl (13.5-17.5); MEAN CORPUSCULAR HEMOGLOBIN 32.7 pg (27.0-33.0); MEAN CORPUSCULAR HGB CONC 33.7 g/dl (32.0-36.5); MEAN CORPUSCULAR VOLUME 97.1 fl (80.0-96.0); PLATELET COUNT, AUTOMATED 212 10^3/uL (150-450)
[2024-12-01 06:43] LABS: ALBUMIN 3.4 G/DL (3.2-5.2); ALKALINE PHOSPHATASE 52 U/L (40-129); ALT/SGPT 39 U/L (7.0-40); AST/SGOT 45 U/L (<34); BILIRUBIN,TOTAL 0.8 MG/DL (0.3-1.2); BLOOD UREA NITROGEN 28 MG/DL (9-23); CALCIUM LEVEL 9.1 MG/DL (8.3-10.6); CARBON DIOXIDE LEVEL 29 MMOL/L (20-31); CHLORIDE LEVEL 99 MMOL/L (98-107); CREATININE FOR GFR 1.17 MG/DL (0.70-1.30); GLOMERULAR FILTRATION RATE > 60.0 (>49); GLUCOSE, FASTING 96 MG/DL (74-106); MAGNESIUM LEVEL 1.5 MG/DL (1.8-2.4); POTASSIUM SERUM 4.2 MMOL/L (3.5-5.1); SODIUM LEVEL 137 MMOL/L (136-145); TOTAL PROTEIN 6.6 G/DL (5.7-8.2)
[2024-12-01 07:46] VITALS: BP 137/60; TEMP 98.8; O2SAT 90
[2024-12-01] MEDS: predniSONE 20 MG TAB PO SCH (08:13)
[2024-12-01] MEDS: MAG SULF 1GM/100ML (MAG RUN) 1 GM in IV 1 EA IV ONE (08:16)
[2024-12-01] MEDS: cefTRIAXone SOD 1 GM in DEXTROSE 5% (D5W) ADV/MINI-BAG 50 ML IV SCH (11:51)
[2024-12-01] MEDS: ACETAMINOPHEN 325 MG TAB PO PRN (11:52)
[2024-12-01 12:00] VITALS: BP 123/60; TEMP 97; O2SAT 95
[2024-12-01] MEDS: AZITHROMYCIN 250MG TABLET PO SCH (12:36)
[2024-12-01] MEDS: BENZONATATE 100MG CAPSULE PO SCH (15:24)
[2024-12-01 20:00] VITALS: BP 100/65; TEMP 97.6; O2SAT 93
[2024-12-02] VITALS: BP 100/65; TEMP 97.6; O2SAT 93
[2024-12-02 03:40] VITALS: BP 129/72; TEMP 96.4; O2SAT 96
[2024-12-02 04:00] VITALS: BP 100/65; TEMP 97.5; O2SAT 93
[2024-12-02 07:50] VITALS: BP 136/64; TEMP 97.4; O2SAT 96
[2024-12-02 08:34] VITALS: BP 136/64
[2024-12-02] MEDS ORDERED: ACET32TAB PO (10:09)
[2024-12-02] MEDS ORDERED: PRED20TA PO (10:09)
[2024-12-02] MEDS ORDERED: PANT40TA29 PO (10:09)
[2024-12-02] MEDS ORDERED: GUAI100S51 PO (10:09)
[2024-12-02] MEDS ORDERED: AZIT-12 PO (10:09)
[2024-12-02] MEDS ORDERED: BENZ-18 PO (10:09)
[2024-12-02] MEDS ORDERED: CEFD1CAP9 PO (10:10)
[2024-12-02] MEDS ORDERED: BREO1INH INH (10:12)
[2024-12-02] MEDS ORDERED: LORA-622 PO (10:14)
[2024-12-02] MEDS ORDERED: IPRA0.00 INH (10:29)
== END 2024-12-02 12:12 | disposition home or self-care (01) | DRG 192 ==
LOC: M ED 03:13 → M ED INP 08:03 → M PCU 17:00
PROVIDERS: ADMIT Student in an Organized Health Care Education/Training Program; ATTEND Student in an Organized Health Care Education/Training Program
DX: J44.1 Chronic obstructive pulmonary disease with (acute) exacerbation (principal); I50.9 Heart failure, unspecified; I48.91 Unspecified atrial fibrillation; I11.0 Hypertensive heart disease with heart failure; E78.5 Hyperlipidemia, unspecified; E11.9 Type 2 diabetes mellitus without complications; F10.90 Alcohol use, unspecified, uncomplicated; B34.2 Coronavirus infection, unspecified; Z87.891 Personal history of nicotine dependence; Z79.01 Long term (current) use of anticoagulants; Z79.899 Other long term (current) drug therapy; Z95.0 Presence of cardiac pacemaker

== ENCOUNTER → 2025-01-24 | Outpatient (REF) | payer MEDICARE, MEDICAID ==
[~2025-01-24] MED LIST changes: +ACET32TAB PO; +AZIT-12 PO; +BENZ-18 PO; +BREO1INH INH; +CEFD1CAP9 PO; -FLOM0.4C39 PO; +GUAI100S51 PO; +IPRA0.00 INH; +LORA-622 PO; +PANT40TA29 PO; +TAMS-18 PO
[2025-01-24 17:12] LABS: ALBUMIN 3.8 G/DL (3.2-5.2); BILIRUBIN,TOTAL 0.5 MG/DL (0.3-1.2); CREATININE FOR GFR 1.96 MG/DL (0.70-1.30); MAGNESIUM LEVEL 1.9 MG/DL (1.8-2.4); POTASSIUM SERUM 5.3 MMOL/L (3.5-5.1); TOTAL PROTEIN 7.4 G/DL (5.7-8.2)
== END ==
LOC: M SFHCPLAZ 14:33
PROVIDERS: ATTEND Family Medicine
DX: R19.7 Diarrhea, unspecified (principal); I48.0 Paroxysmal atrial fibrillation

== ENCOUNTER 2025-09-18 06:41 | Emergency (ER) | payer MEDICARE, MEDICAID ==
[~2025-09-18] VITALS: Ht 180.3 cm; Wt 111.4 kg
[~2025-09-18 06:41] MED LIST changes: +LORA-1164 PO; -LORA-622 PO
[2025-09-18 07:27] LABS: BASO # 0.1 10^3/uL (0.0-0.2); BASO % 0.8 % (0.0-1.0); EOS # 0.3 10^3/uL (0.0-0.5); EOS % 4.5 % (0.0-3.0); LYMPH # 1.6 10^3/uL (1.5-5.0); LYMPH % 25.0 % (24.0-44.0); MONO # 0.9 10^3/uL (0.0-0.8); MONO % 14.5 % (2.0-8.0); NEUTROPHILS # 3.4 10^3/uL (1.5-8.5); NEUTROPHILS % 54.9 % (36.0-66.0); PLATELET COUNT, AUTOMATED 273 10^3/uL (150-450)
[2025-09-18] MEDS: IPRATROPIUM 0.5 MG/ALBUTEROL 2.5 MG INH SOL UD 3 ML NEB PRN (07:40)
[2025-09-18 07:46] LABS: ALT/SGPT 69.0 U/L (7.0-40); AST/SGOT 73.0 U/L (<34); CALCIUM LEVEL 9.0 MG/DL (8.3-10.6); CARBON DIOXIDE LEVEL 30.0 MMOL/L (20-31); CHLORIDE LEVEL 100.0 MMOL/L (98-107); CK-MB VALUE MASS 1.4 NG/ML (<3.6); CREATININE FOR GFR 1.01 MG/DL (0.70-1.30); GLOMERULAR FILTRATION RATE 84.1 (>49); POTASSIUM SERUM 4.1 MMOL/L (3.5-5.1); SODIUM LEVEL 139.0 MMOL/L (136-145)
[2025-09-18 07:47] LABS: CPK CREATINE PHOSPHOKINASE 127.0 U/L (46-171); MB/CK RELATIVE INDEX 1.1 (< OR =4)
[2025-09-18 07:57] LABS: INR 0.99
[2025-09-18 08:02] LABS: DIGOXIN LEVEL 0.3 NG/ML (0.8-2.0)
[2025-09-18 08:41] LABS: CK-MB VALUE MASS 2.0 NG/ML (<3.6)
[2025-09-18 08:42] LABS: CPK CREATINE PHOSPHOKINASE 120.0 U/L (46-171); MB/CK RELATIVE INDEX 1.66 (< OR =4)
[2025-09-18 10:09] VITALS: O2SAT 96
[2025-09-18] MEDS ORDERED: ALBU2.5V10 NEB (10:12)
[2025-09-18] MEDS ORDERED: PRED20TA PO (10:12)
[2025-09-18] MEDS ORDERED: NEBU1EAC80 MC (10:12)
[2025-09-18 11:00] VITALS: BP 175/89; TEMP 99; O2SAT 93
[2025-09-19] MEDS ORDERED: FOLI400T13 PO (23:39)
[2025-09-19] MEDS ORDERED: TAMS1CAP17 PO (23:39)
[2025-09-19] MEDS ORDERED: THIA100T22 PO (23:39)
[2025-09-19] MEDS ORDERED: MED REC COMMENT (23:41)
[2025-09-23] MEDS ORDERED: ADVA230A INH (11:09)
[2025-09-23] MEDS ORDERED: PRED10TA2 PO (11:09)
[2025-09-23] MEDS ORDERED: GUAI100L6 PO (11:09)
== END 2025-09-18 11:00 | disposition home or self-care (01) ==
LOC: M ED 06:41
DX: J44.1 Chronic obstructive pulmonary disease with (acute) exacerbation (principal); B97.4 Respiratory syncytial virus as the cause of diseases classified elsewhere; I48.91 Unspecified atrial fibrillation; I11.0 Hypertensive heart disease with heart failure; I50.9 Heart failure, unspecified; E11.9 Type 2 diabetes mellitus without complications; E78.5 Hyperlipidemia, unspecified; F10.10 Alcohol abuse, uncomplicated; Z95.0 Presence of cardiac pacemaker; Z79.01 Long term (current) use of anticoagulants; Z79.899 Other long term (current) drug therapy